=== PATIENT | female | born 1990 | race Caucasian/White ===

== ENCOUNTER 2024-06-26 22:24 | Emergency (ER) | payer MEDICAID, SELFPAY ==
--- NOTE | 2024-06-26 22:29 | PC.NURSE ---
Patient entered ER with [place] police. Patient is screaming and combative. Not cooperating with care at all. Police state she was holding a knife to her chest threatening to kill herself in front of her children. Neighbor called police at the request of her 12 year old child.
--- NOTE | 2024-06-26 22:33 | PC.NURSE ---
Patient states she is God and that everyone should listen to her. She continues to scream and yell at police.
--- NOTE | 2024-06-26 22:34 | PD.EDPSYCH ---
ED Psych RME/HPI General Chief Complaint: Suicidal Stated Complaint: MENTAL EVAL Time Seen by Provider: 06/26/24 22:32 Arrival date/time: 06/26/24 22:24 Limitations: no limitations RME / HPI RME / HPI Narrative: Dr. Palacios's Main ED Evaluation: 34yo female BIB [employer] presents to the ED on a 5150 hold for psychiatric evaluation. Per [employer], the patient's children went to the neighbors house stating their mom had a knife and was threatening to harm herself. [employer] notes the patient was drinking alcohol today. Patient denies HI or halllucinations. Related Data Home Medications ?Medication ?Instructions ?Recorded ?Confirmed vit no.95-ferrous 1 tab PO QDAY 10/26/19 10/07/20 fumarate 28 mg-folic acid 800 mcg tablet () Allergies Allergy/AdvReac Type Severity Reaction Status Date / Time red dye Allergy CANT Verified 10/07/20 19:19 BREATH AND SWELLING Review of Systems Review of Systems Systems Reviewed: All systems reviewed, normal except as documented Past Medical History Past Medical History NEUROLOGIC: Negative Neurological Disorders CARDIAC: Negative Cardiac Disorders or Congestive Heart Failure RESPIRATORY: Negative Chronic Obstructive Pulmonary Disease (COPD) GASTROINTESTINAL: Negative Gastrointestinal Disorders GENITOURINARY: Negative Genitourinary Disorders or Renal Disease REPRODUCTIVE: Positive Previous Pregnancies MUSCULOSKELETAL: Negative Musculoskeletal Disorders ENDOCRINE: Negative Endocrine Disorders, Diabetes Mellitus Type 1 or Diabetes Mellitus Type 2 HEMATOLOGIC: Positive Blood Disorders and Anemia (anemia) PSYCHO/SOCIAL: Positive Anxiety (xanax prior to ) and Depression OTHER HISTORY: Negative Autoimmune Disease Family History FAMILY HISTORY: Negative Family Psychiatric Problems, Family Respiratory Disorders, Family Cardiac Disorders, Family Gastrointestinal Problems, Family Cancer, Family Surgery or Family Anesthesia Reaction Social History SMOKING STATUS: Unknown if ever smoked SECOND HAND EXPOSURE: No ED Exam General Limitations: Present no limitations General appearance: Present alert, in no apparent distress and other (is yelling and screaming, crying, combative; spitting at staff; not answering questions, but follows commands) Head Head exam: Present atraumatic Eye Eye exam: Present normal appearance, PERRL and EOMI ENT ENT exam: Present normal exam, normal oropharynx and mucous membranes moist Neck Neck exam: Present normal inspection, full ROM and trachea midline Chest Chest inspection: Present normal inspection and symmetric chest wall rise Respiratory Respiratory exam: Present normal lung sounds bilaterally Cardiovascular Cardiovascular exam: Present regular rate, normal rhythm and normal heart sounds Abdominal Exam Abdominal exam: Present soft and normal bowel sounds; Absent distention Extremities Exam Extremities exam: Present normal inspection and full ROM Back Exam Back exam: Present normal inspection and full ROM Neurological Exam Neurological exam: Present alert, oriented X3 and CN II-XII intact Psychiatric Psychiatric exam: Present agitated and other (combative; pressured speech) Skin Skin exam: Present warm, dry, intact and normal color; Absent other (lacerations) Course Course Course Narrative: 0600: Care signed out to Dr. Flores (emergency physician). Past medical, surgical, social and family history reviewed. Vitals and home medications reviewed. Results and treatment plan discussed. They will assume the care of the patient at this time and will follow the patient, pending UA, medical clearance for crisis evaluation. Quality Measures none Orders Category Date Time Status 4 HR Behavioral Restraints Q15M Care 06/26/24 23:02 Active Alcohol, Blood Medical Stat Lab 06/26/24 23:28 Completed Beta HCG,Quantitative Stat Lab 06/26/24 23:28 Completed CBC Stat Lab 06/26/24 23:28 Completed Comprehensive Metabolic Panel Stat Lab 06/26/24 23:28 Completed Drug Screen,Urine Stat Lab 06/26/24 23:07 Ordered UA [Urinalysis] Stat Lab 06/26/24 23:07 Ordered DiphenhydrAMINE INJ [Benadryl Inj] Med 06/26/24 22:33 Discontinued 50 mg IM X1 ONE Haloperidol Lactate [Haldol Inj] Med 06/26/24 22:33 Discontinued 5 mg IM X1 ONE LORazepam [Ativan Inj] Med 06/26/24 22:33 Discontinued 2 mg IM X1 ONE Vital Signs Vital signs: Vital Signs Temperature 98.4 F 06/27/24 00:07 Pulse Rate 102 H 06/27/24 00:07 Respiratory Rate 20 06/27/24 00:07 Blood Pressure 118/79 06/27/24 00:07 Pulse Oximetry (%) 100 06/27/24 00:07 Oxygen Delivery Method Room Air 06/27/24 00:07 Pulse ox is 100% on room air, which is normal according to my interpretation. Psych Patient data External records reviewed:: [facility] previous records (Per chart review, patient was seen here on 04/15/24 for alcohol intoxication.) Clinical information provided by:: patient and law enforcement Social determinants that could affect healthcare access:: alcohol use Patient has the following chronic illnesses:: anemia How is presenting disease/condition affected by chronic disease/condition?: uneffected by Evaluation data The following diagnostics were reviewed and interpreted by me:: lab results Lab and/or radiology exams considered but not ordered:: none Interpretation Summary: CBC is normal, Potassium is slightly low at 3.2, Beta HCG is 1, Blood alcohol is 158.1, according to my interpretation. Medications / Prescriptions Medications or Prescriptions considered but not ordered:: none Medication administrations:: Medication Administration History Discontinued Medications Diphenhydramine HCl (Diphenhydramine Inj 50 Mg/Ml Vial) 50 mg IM X1 ONE Stop: 06/26/24 22:34 Last Admin: 06/26/24 22:41 Dose: 50 mg Documented By: ELVIN Haloperidol Lactate (Haloperidol Lact Inj 5 Mg/Ml Vial) 5 mg IM X1 ONE Stop: 06/26/24 22:34 Last Admin: 06/26/24 22:37 Dose: 5 mg Documented By: ELVIN Lorazepam (Lorazepam 2 Mg/Ml Vial) 2 mg IM X1 ONE Stop: 06/26/24 22:34 Last Admin: 06/26/24 22:41 Dose: 2 mg Documented By: ELVIN see above Consultations Consultation(s) initiated? (list below): No Diagnosis Psych Differential Diagnosis: other (SI, alcohol use, drug use) Most likely diagnosis given after review of the tests above:: see below Admission Indicated Admission indicated?: not indicated Admission Request Was there a request for admission?: No Disposition Plan Disposition Plan: other (specify) (Signed out to the next oncoming provider at 0600 pending medical clearance for psychiatric evaluation.) Discharge Plan Plan Patient condition on transfer: Stable Prescriptions/Referrals Prescriptions/Med Rec: No Action PNV cmb#95-ferrous fumarate-FA [] 28 mg iron- 800 mcg Tablet 1 tab PO QDAY Referrals: No Primary/Family,Physician [Primary Care Provider] - In 1 week Problem List Clinical Impression: Suicidal ideation, Alcohol use Patient/Caregiver Discharge Instructions Print Language: Albanian
--- NOTE | 2024-06-26 22:35 | PC.NURSE ---
[facility]
[2024-06-26] MEDS: HALOPERIDOL LACT INJ 5 MG/ML VIAL IM (22:37)
--- NOTE | 2024-06-26 22:37 | PC.NURSE ---
Patient continues to thrash her body around and slam her cuffed arm against bed.
--- NOTE | 2024-06-26 22:38 | PC.NURSE ---
real estate officer offered to allow patient to get on the bed herself. Patient obliged and laid down. Patient medicated per MDs orders
[2024-06-26] MEDS: DiphenhydrAMINE INJ 50 MG/ML VIAL IM (22:41)
[2024-06-26] MEDS: LORazepam 2 MG/ML VIAL IM (22:41)
--- NOTE | 2024-06-26 23:01 | PC.NURSE ---
Patient threatening to spit in security's face. Refusing to answer any questions pertaining to her medical care and mental health. Unable to complete mental health screenings.
[2024-06-26 23:41] VITALS: BMI 32.5
[2024-06-26 23:47] LABS: Basophils % (Auto) 0 % (0-2.5); Eosinophils # (Auto) 0.1 Thou/mm3 (0.0-0.5); Eosinophils % (Auto) 2 % (0-10); Hematocrit 35.9 % (36.0-46.0); Hemoglobin 11.9 g/dL (12.0-16.0); Immature Granulocytes % (Auto) 0 % (0-0); Immature Granulocytes Auto 0.02 Thou/mm3 (0.00-0.00); Lymphocytes # (Auto) 1.8 Thou/mm3 (1.0-4.8); Lymphocytes % (Auto) 36 % (10-50); Mean Corpuscular HGB Conc 33.1 g/dl (31.0-37.0); Mean Corpuscular Hemoglobin 30.5 pg (25.0-35.0); Mean Corpuscular Volume 92 fL (80-100); Monocytes # (Auto) 0.3 Thou/mm3 (0.0-0.8); Monocytes % (Auto) 5 % (0-12); Neutrophils # (Auto) 2.8 Thou/mm3 (1.8-7.7); Neutrophils % (Auto) 57 % (37-80); Nucleated Red Blood Cell % 0 /100 WBC (0); Platelet Count 242 Thou/mm3 (140-440); RDW Standard Deviation 45.8 fL (36.4-46.3)
[2024-06-27 00:02] LABS: Alanine Aminotransferase 14 U/L (10-49); Albumin, Serum 4.2 gm/dL (3.5-5.0); Albumin/Globulin Ratio 1.6 (1.2-2.2); Alcohol, Blood Medical 158.1 mg/dL (0-10.0); Alkaline Phosphatase 85 U/L (46-116); Anion Gap 11 (7-16); Aspartate Amino Transferase 17 U/L (0-34); BUN/Creatinine Ratio 11 Ratio (12-20); Beta HCG,Quantitative 1 mIU/mL (<5.0); Bilirubin,Total 0.3 mg/dL (0.3-1.2); Blood Urea Nitrogen 8 mg/dL (9-23); Calcium 9.1 mg/dL (8.3-10.6); Calcium (Corrected) 9.1 mg/dL (8.5-10.1); Carbon Dioxide 22.4 mMol/L (20.0-31.0); Chloride 113 mMol/L (98-107); Creatinine (Component) 0.7 mg/dL (0.6-1.3); Globulin 2.7 gm/dL (2.3-3.5); Glucose 99 mg/dL (74-106); Osmolality,Calculated 288 (275-295); Potassium 3.2 mMol/L (3.4-5.1); Sodium 146 mMol/L (136-145); Total Protein 6.9 gm/dL (5.7-8.2); eGFR > 60 See Note
[2024-06-27 00:07] VITALS: BP 118/79; PULSE 102; RESP 20; TEMP 36.9; O2SAT 100
[2024-06-27 05:23] VITALS: BP 117/77; PULSE 88; RESP 17; TEMP 36.6; O2SAT 99
--- NOTE | 2024-06-27 05:34 | PC.NURSE ---
Pt awake, calm at this time. Pt placed into gown which she complied with. Belongings placed in locker. Pt aware of need for urine sample, stated she cannot go at this time. Water given.
--- NOTE | 2024-06-27 06:21 | PC.NURSE ---
Pt now awake, calm but not cooperating. Pt aware of need for urine sample but is refusing saying I don't need to be here, I did nothing wrong, I'm not doing anything you people want . Pt educated on process of 5150 and need for urine to be medically cleared. Pt still refused. made aware.
--- NOTE | 2024-06-27 07:30 | PC.NURSE ---
patient refused to give us urine sample
[2024-06-27 07:57] VITALS: BP 101/66; PULSE 83; RESP 18; TEMP 36.7; O2SAT 99
--- NOTE | 2024-06-27 08:06 | PC.NURSE ---
patient denies any Suicide Ideations at the moment
[2024-06-27 10:03] VITALS: BP 116/75; PULSE 88; RESP 18; TEMP 36.7; O2SAT 97
[2024-06-27 12:00] VITALS: BP 116/76; PULSE 86; RESP 17; TEMP 36.6; O2SAT 100
--- NOTE | 2024-06-27 12:09 | PD.EDADDENDU ---
Emergency Room Addendum Addendum Narrative: The patient was signed out to me from Dr. Barlow at 6:00 this morning pending mental health evaluation for 5150. Please see her note. 12 0 9 PM, IM being notified by Ousmane, social human services assistants/mental health property management supervisor. He said that he had already cleared the patient off 5150 and the patient can go home. He is calling for to come and shredder picker. Patient is alert awake oriented x 4 GCS of 15 and is sober. She is talking well. She denies any suicidal or homicidal ideation. She denies any delusion. Denied hallucination. Diagnosis: Mental health evaluation Alcohol abuse Condition: Stable and improved DC instruction: Avoid alcohol. Follow-up with mental health. Return to ER if any problem.
--- NOTE | 2024-06-27 17:36 | PC.CC ---
Pt Casie Hawkins is a 34 yr old female on 5150 hold placed by [facility] for DTS. Pt has been medically cleared, with pt refusing to provide urine sample. Pt has scored low on [facility] Screening. Pt has positive tox screening for alcohol. ASW met with pt at bedside. ASW introduced self and role in pt care. ASW explained reason for encounter. At time of encounter pt presented laying down on gurney. Pt speaks in clear tone. Pt appears annoyed evidence by tone of her voice and short responses to assessment questions. Pt failed to keep eye contact. ASW assessed events that occurred the evening prior to led to pt being brought to ED by law enforcement. Per pt she was washing dishes following dinner. Pt reports she had been drinking and next thing she can recall [place] [employer] detained her and brought her to ED. ASW assessed if pt was holding a knife to her body? Pt reports she was washing dishes and no point did she make statements that she wanted to harm herself or anyone else. At this time pt is denying SI/HI. Pt denying A/VH. Pt denies any hx of MH, and no hospitalizations in psychiatric setting. Pt expressed verbal consent for ASW to speak with her Santosh Hawkins [phone]. 1113-ASW spoke with pts, who states he was outside making dinner when he heard a commotion and pt being detained by [facility] to bring her to the hospital. Mr. Hawkins confirms pt has no hx of psychiatric concerns. Pt has never attempted to harm herself or anyone else. Per Mr. Hawkins his only concerns is pts drinking. Per Mr. Hawkins pt drinks heavily and law enforcement has to intervene. Mr. Hawkins states he is willing to allow pt to return home, with the understanding that she needs to stop drinking. Mr. Hawkins states the couple have children who are all safe in his care at this time. Per Mr. Hawkins he is certain his neighbor is the one who contacted law enforcement. ASW informed Mr. Hawkins that pt can be provided with resources for cessation. Pts agreeable. ASW informed Mr. Hawkins that case will be staffed and Mr. Hawkins will be notified of outcome. 1143-Case staffed with [employer]ILITY MANAGER Padma Aguirre. Pt to be cleared with community resources for AOD services. ASW met with pt and provided outcome of phone conversation with her . Pt appeared annoyed again, but states she will take resources. 1329-Call to Mr. Hawkins with plan and outcome of assessment. Per Ross, pts family will transport her home.
--- NOTE | 2024-06-29 14:57 | PC.CC ---
Pts chart accessed to update crisis stats and log.
== END 2024-06-27 13:30 | disposition home or self-care (01) ==
PROVIDERS: Emergency Medicine; Emergency Provider Emergency Medicine
DX: Z04.6 Encounter for general psychiatric examination, requested by authority (principal); R45.851 Suicidal ideations; F10.10 Alcohol abuse, uncomplicated; Y90.6 Blood alcohol level of 120-199 mg/100 ml
CPT/HCPCS: 36415; 80053; 80307; 80320; 81001; 84702; 85025; 96127; 96372; 99285; J1200; J1630; J2060; G0480

== ENCOUNTER 2025-06-17 01:24 | Emergency (ER) | payer MEDICAID, SELFPAY ==
--- NOTE | 2025-06-17 01:28 | EDNOTE_ITS ---
ED Medical Clearance RME/HPI General Chief complaint: Medical Clearance Stated complaint: CARE HOME CLEARANCE Time Seen by Provider: 06/17/25 01:45 Arrival date/time: 06/17/25 01:24 RME / HPI RME / HPI Narrative: See MDM for Dr. Shrestha's HPI Documentation. Related Information Home Medications ?Medication ?Instructions ?Recorded ?Confirmed vit no.95-ferrous 1 tab PO QDAY 10/26/19 04/0 08/28 fumarate 28 mg-folic acid 800 mcg tablet () Allergies Allergy/AdvReac Type Severity Reaction Status Date / Time red dye Allergy CANT Verified 06/17/25 01:39 BREATH AND SWELLING Review of Systems Review of Systems Systems Reviewed: All systems reviewed, normal except as documented Past Medical History Past Medical History REPRODUCTIVE: Positive Previous Pregnancies HEMATOLOGIC: Positive Blood Disorders and Anemia PSYCHO/SOCIAL: Positive Anxiety and Depression ED Exam Narrative Physical exam: See MDM for Dr. Shrestha's Physical Exam Documentation. Course Quality Measures none Orders Category Date Time Status Alcohol, Blood Medical Stat Lab 06/17/25 01:36 Completed Amylase Stat Lab 06/17/25 01:36 Completed Beta HCG,Quantitative Stat Lab 06/17/25 01:36 Completed Bilirubin,Direct Stat Lab 06/17/25 01:36 Completed CBC Stat Lab 06/17/25 01:36 Completed CK [Creatine Kinase] Stat Lab 06/17/25 01:36 Completed CMP [Comprehensive Metabolic Panel] Stat Lab 06/17/25 01:36 Completed Lipase Stat Lab 06/17/25 01:36 Completed Magnesium Stat Lab 06/17/25 01:36 Completed PT [Prothrombin Time with INR] Stat Lab 06/17/25 01:36 Completed PTT [Partial Thromboplastin Time] Stat Lab 06/17/25 01:36 Completed TSH [Thyroid Stimulating Hormone] Stat Lab 06/17/25 01:36 Completed Troponin I Stat Lab 06/17/25 01:36 Completed POTASSIUM CHL 10% Liq 15 ML Med 06/17/25 02:34 Discontinued 40 meq PO X1 ONE Vital Signs Vital signs: Vital Signs Pulse Rate 112 H 06/17/25 03:02 Respiratory Rate 18 06/17/25 03:02 Blood Pressure 176/107 H 06/17/25 03:02 Pulse Oximetry (%) 98 06/17/25 03:02 Medical Clearance MDM Narrative MDM Narrative:: This section includes all my notes and documentations, including HPI, PE, and ED course. Jamie Shrestha MD HPI: 35 y/o female here for residential medical clearance. Patient reported being so medical clearance was needed. She reports no abdominal pain. No bleeding. No other complaints. ROS: All negative except as documented in HPI. Physical Exam: General: Alert. Appears intoxicated. Patient refuses to answer questions. Eyes: Conjunctivae and lids clear. PERRL. EOMI. ENT: No nasal congestion. Neck: Supple. Heart: Tachycardia with regular rhythm. Lungs: No respiratory distress. Good air movement. No rhonchi, wheezing, rales. Abdomen: Soft and nontender. Normal bowel sounds. No distension. No rebound or guarding. Back: No CVA tenderness. Skin: Warm and dry. Neuro: Alert. Cranial nerves II to XII grossly normal. No peripheral motor deficits. I reviewed all diagnostic test results: Blood tests remarkable for K 3.2, serum alcohol 265.5, and negative beta-hCG. At this point, diagnoses include: Medical Clearance for Incarceration Alcohol Intoxication Negative Hypokalemia Treatment here included: Oral KCl 40 mEq Based on my best medical judgment, made decision to medically clear the patient and no further evaluation or treatment indicated at this time. Patient understands and agrees to the discharge instructions customized and printed, see below. Discharge Instructions from Dr. Shrestha printed for you: 1. After evaluation, you are not . 2. You are medically cleared for residential. 3. See a private doctor on 06/18/2025 or whenever you are released. Ask for help to quit alcohol. Ask to review all test results and official radiology reports, to make sure you receive all necessary follow-ups and monitoring, including repeat potassium level. 4. Seek immediate medical care with any concerns. Jamie Shrestha MD Patient data External records reviewed:: [facility] previous records (Reviewed prior ED records from 06/27/24. Patient was seen for Alcohol use.) Clinical information provided by:: patient and law enforcement Social determinants that could affect healthcare access:: alcohol use Patient has the following chronic illnesses:: Anemia, Anxiety How is presenting disease/condition affected by chronic disease/condition?: exacerbated by Evaluation data The following diagnostics were reviewed and interpreted by me:: lab results Lab and/or radiology exams considered but not ordered:: None Interpretation Summary: Blood tests remarkable for K 3.2, serum alcohol 265.5, and negative beta-hCG. Medications / Prescriptions Medications or Prescriptions considered but not ordered:: None Medication administrations:: Medication Administration History Discontinued Medications Potassium Chloride (Potassium Chloride 10% 20 Meq/15 Ml Udc) 40 meq PO X1 ONE Stop: 06/17/25 02:35 Last Admin: 06/17/25 03:02 Dose: 40 meq Documented By: CVL Oral KCl 40 mEq Consultations Consultation(s) initiated? (list below): No Diagnosis Medical Clearance Differential Diagnosis: other (Alcohol intoxication, , Anxiety) Most likely diagnosis given after review of the tests above:: Alcohol Intoxication Medical Clearance for Incarceration Negative Hypokalemia Admission Indicated Admission indicated?: not indicated Explain why admission is indicated or not indicated:: With no condition needing emergent intervention, there was no indication for admission. Admission Request Was there a request for admission?: No Disposition Plan Disposition Plan: Discharge (to [facility]) Discharge Attestation Discharge Attestation: The patient and all family members were given an opportunity to ask questions and understood the discharge instructions. Discharge instructions specifically effects, indications for sooner follow up or return to the emergency department, and the expected course of current diagnosis. Patient condition: Stable Discharge Plan Plan Patient Disposition: Alf/Court/Law Prescriptions/Referrals Prescriptions/Med Rec: No Action PNV no.95-ferrous fumarate-FA [] 28 mg iron- 800 mcg Tablet 1 tab PO QDAY Referrals: No Primary/Family,Physician [Primary Care Provider] - In 1 week Problem List Clinical Impression: Alcohol intoxication, Medical clearance for incarceration Patient/Caregiver Discharge Instructions Discharge Activity: activity as tolerated Education Materials: ED Alcohol Intoxication Additional Instructions: Discharge Instructions from Dr. Shrestha printed for you: 1. After evaluation, you are not . 2. You are medically cleared for residential. 3. See a private doctor on 06/18/2025 or whenever you are released. Ask for help to quit alcohol. Ask to review all test results and official radiology reports, to make sure you receive all necessary follow-ups and monitoring, including repeat potassium level. 4. Seek immediate medical care with any concerns. Print Language: Swedish
[2025-06-17 01:54] LABS: Basophils # (Auto) 0.0 Thou/mm3 (0.0-0.2); Basophils % (Auto) 0 % (0-2.5); Eosinophils # (Auto) 0.1 Thou/mm3 (0.0-0.5); Eosinophils % (Auto) 2 % (0-10); Hematocrit 38.7 % (36.0-46.0); Hemoglobin 13.7 g/dL (12.0-16.0); Immature Granulocytes Auto 0.03 Thou/mm3 (0.00-0.00); Lymphocytes # (Auto) 2.8 Thou/mm3 (1.0-4.8); Lymphocytes % (Auto) 37 % (10-50); Mean Corpuscular HGB Conc 35.4 g/dl (31.0-37.0); Mean Corpuscular Hemoglobin 36.9 pg (25.0-35.0); Mean Corpuscular Volume 104 fL (80-100); Monocytes # (Auto) 0.6 Thou/mm3 (0.0-0.8); Monocytes % (Auto) 8 % (0-12); Neutrophils # (Auto) 4.0 Thou/mm3 (1.8-7.7); Neutrophils % (Auto) 53 % (37-80); Nucleated Red Blood Cell # 0.00 Thou/mm3 (0.00-0.00); Nucleated Red Blood Cell % 0 /100 WBC (0); Platelet Count 314 Thou/mm3 (140-440); RDW Standard Deviation 67.7 fL (36.4-46.3); Red Blood Count 3.71 Miln/mm3 (4.00-5.20); White Blood Count 7.6 Thou/mm3 (3.6-11.0)
[2025-06-17 02:17] LABS: INR 1.1 (0.9-1.3); Partial Thromboplastin Time 24.0 Seconds (22.0-36.0); Prothrombin Time 11.3 Seconds (9.0-12.2)
[2025-06-17 02:22] LABS: Alanine Aminotransferase 64 U/L (10-49); Albumin, Serum 4.8 gm/dL (3.5-5.0); Albumin/Globulin Ratio 1.5 (1.2-2.2); Alcohol, Blood Medical 265.5 mg/dL (0-10.0); Alkaline Phosphatase 125 U/L (46-116); Amylase 36 U/L (30-118); Anion Gap 13 (7-16); Aspartate Amino Transferase 91 U/L (0-34); BUN/Creatinine Ratio 7 Ratio (12-20); Beta HCG,Quantitative < 1 mIU/mL (<5.0); Bilirubin,Direct 0.2 mg/dL (0.0-0.3); Bilirubin,Total 0.6 mg/dL (0.3-1.2); Blood Urea Nitrogen 6 mg/dL (9-23); Calcium 8.5 mg/dL (8.3-10.6); Calcium (Corrected) 8.5 mg/dL (8.5-10.1); Carbon Dioxide 21.9 mMol/L (20.0-31.0); Chloride 109 mMol/L (98-107); Creatine Kinase 93 U/L (34-171); Creatinine (Component) 0.9 mg/dL (0.6-1.3); Globulin 3.1 gm/dL (2.3-3.5); Glucose 163 mg/dL (74-106); Lipase 48 U/L (12-53); Magnesium 1.6 mg/dL (1.6-2.6); Osmolality,Calculated 288 (275-295); Potassium 3.2 mMol/L (3.4-5.1); Sodium 144 mMol/L (136-145); Thyroid Stimulating Hormone 2.19 uIU/mL (0.55-4.78); Total Protein 7.9 gm/dL (5.7-8.2); Troponin I < 0.020 ng/mL (0.0-0.045); eGFR > 60 See Note
[2025-06-17 03:02] VITALS: BP 176/107; PULSE 112; RESP 18; O2SAT 98
[2025-06-17] MEDS: POTASSIUM CHLORIDE 10% 20 MEQ/15 ML UDC 40 MEQ PO (03:02)
== END 2025-06-17 03:05 ==
PROVIDERS: Emergency Provider Emergency Medicine
DX: Z02.89 Encounter for other administrative examinations (principal); F10.929 Alcohol use, unspecified with intoxication, unspecified; Y90.8 Blood alcohol level of 240 mg/100 ml or more
CPT/HCPCS: 36415; 80053; 80307; 80320; 81001; 82150; 82248; 82550; 83690; 83735; 84443; 84484; 84702; 85025; 85610; 85730; 99282; A9270; G0480